=== PATIENT | female | born 1995 | race Caucasian/White ===

== ENCOUNTER 2017-11-08 04:32 | Inpatient (IN) | payer OTHER ==
[~2017-11-08] VITALS: Ht 152.4 cm; Wt 83.0 kg
[~2017-11-08 04:32] MED LIST: PREN-88 PO
[2017-11-08] MEDS ORDERED: LACTATED RINGERS 1,000 ML IV SCH (04:48)
[2017-11-08] MEDS ORDERED: DEXT 5%/LR + PITOCIN 20UNITS/L 1,000 ML IV SCH ×2 (04:48→05:17)
[2017-11-08] MEDS ORDERED: METHYLERGONOVINE MALEATE 0.2 MG/ML IM PRN ×2 (05:00→05:30)
[2017-11-08 05:22] LABS: BASOPHILS % 0.2 % (0.0-2.0); EOSINOPHILS % 0.2 % (0.0-5.0); HEMATOCRIT. 37.9 % (36.0-48.0); HEMOGLOBIN. 12.9 g/dL (12.0-16.0); MEAN CORPUSCULAR HEMOGLOBIN 30.2 pg (28.0-32.0); MEAN CORPUSCULAR VOLUME 88.8 fL (81.0-99.0); MEAN PLATELET VOLUME 10.4 fl (7.4-10.4); MONOCYTES % 5.1 % (2.0-8.0); NEUTROPHILS % 69.5 % (40.0-76.0); PLATELET 179 x1000/uL (130-400); RED BLOOD CELL COUNT 4.26 mill/uL (4.2-5.4); RED CELL DISTRIBUTION WIDTH 13.3 % (11.6-14.6)
[2017-11-08] MEDS ORDERED: BENZOCAINE/LANOLIN/ALOE VERA SPRAY TOP PRN (05:30)
[2017-11-08] MEDS ORDERED: DIPHENHYDRAMINE 25MG CAPSULE PO PRN (05:30)
[2017-11-08] MEDS ORDERED: LANOLIN OINT 0.25 GM TUBE TOP PRN (05:30)
[2017-11-08] MEDS ORDERED: BISACODYL 10MG SUPP PR PRN (05:30)
[2017-11-08] MEDS ORDERED: GLYCERIN/WITCH HAZEL LEAF MEDICATED PAD TOP PRN (05:30)
[2017-11-08] MEDS ORDERED: ACETAMINOPHEN WITH CODEINE 300/30MG TABLET PO PRN (05:30)
[2017-11-08 05:31] LABS: INR 0.9; PARTIAL THROMBOPLASTIN TIME 25.8 sec (23.4-31.0); PROTHROMBIN TIME 9.4 sec (9.4-11.6)
[2017-11-08] MEDS: IBUPROFEN 400MG TABLET PO PRN ×2 (07:14→16:04)
[2017-11-08 08:20] VITALS: BP 90/50
[2017-11-08 08:50] VITALS: BP 91/52
[2017-11-08 12:02] LABS: HEPATITIS B SURFACE ANTIGEN NEGATIVE
[2017-11-08 16:21] VITALS: BP 97/60
[2017-11-08] MEDS: MAGNESIUM/ALUMINUM HYDROXIDE/SIMETHICONE 30ML UDC PO SCH ×3 (18:03→20:58)
[2017-11-08] MEDS: SIMETHICONE 80MG TABLET CHEW PO SCH ×2 (18:04→20:41)
[2017-11-08] MEDS: PRENATAL VIT/FE FUMARATE/FA TABLET PO SCH (18:05)
[2017-11-08 20:00] VITALS: BP 101/56
[2017-11-08] MEDS: DOCUSATE SODIUM 100MG CAPSULE PO SCH (20:41)
[2017-11-09] MEDS: ACETAMINOPHEN WITH CODEINE 300/30MG TABLET PO PRN ×4 (02:05→17:36)
[2017-11-09 05:51] VITALS: BP 105/59
[2017-11-09 06:30] LABS: BASOPHILS % 0.3 % (0.0-2.0); EOSINOPHILS % 0.3 % (0.0-5.0); MEAN CORPUSCULAR HEMOGLOBIN 30.2 pg (28.0-32.0); MEAN CORPUSCULAR VOLUME 88.2 fL (81.0-99.0); MEAN PLATELET VOLUME 10.4 fl (7.4-10.4); MONOCYTES % 6.9 % (2.0-8.0); NEUTROPHILS % 63.5 % (40.0-76.0); PLATELET 165 x1000/uL (130-400); RED BLOOD CELL COUNT 3.62 mill/uL (4.2-5.4); RED CELL DISTRIBUTION WIDTH 13.6 % (11.6-14.6)
[2017-11-09 07:45] VITALS: BP 118/79
[2017-11-09] MEDS: HEMORRHOIDAL SUPP PR PRN ×2 (08:24→17:37)
[2017-11-09] MEDS: MAGNESIUM/ALUMINUM HYDROXIDE/SIMETHICONE 30ML UDC PO SCH ×2 (08:24→09:00)
[2017-11-09] MEDS: PRENATAL VIT/FE FUMARATE/FA TABLET PO SCH (08:24)
[2017-11-09] MEDS: SIMETHICONE 80MG TABLET CHEW PO SCH ×3 (08:24→20:58)
[2017-11-09 16:02] VITALS: BP 99/66
[2017-11-09 16:37] LABS: *AMPHETAMINES SCREEN URINE NEGATIVE (NEGATIVE); *BARBITURATES SCREEN URINE NEGATIVE (NEGATIVE); *BENZODIAZEPINES SCREEN URINE NEGATIVE (NEGATIVE); *COCAINE SCREEN URINE NEGATIVE (NEGATIVE); CANNABINOID URINE SCREEN NEGATIVE (NEGATIVE); METHADONE URINE SCREEN NEGATIVE (NEGATIVE); PHENCYCLIDINE URINE SCREEN NEGATIVE (NEGATIVE)
[2017-11-09 16:41] LABS: OPIATES URINE SCREEN PRESUMTIVE POSITIVE (NEGATIVE)
[2017-11-09] MEDS: FERROUS SULFATE 325MG TABLET PO SCH (17:00)
[2017-11-09 19:50] VITALS: BP 101/60
[2017-11-09] MEDS: DOCUSATE SODIUM 100MG CAPSULE PO SCH (20:59)
[2017-11-10] MEDS: IBUPROFEN 400MG TABLET PO PRN ×2 (00:14→07:56)
[2017-11-10] MEDS: PRENATAL VIT/FE FUMARATE/FA TABLET PO SCH (07:56)
[2017-11-10] MEDS: MAGNESIUM/ALUMINUM HYDROXIDE/SIMETHICONE 30ML UDC PO SCH (07:57)
[2017-11-10] MEDS: FERROUS SULFATE 325MG TABLET PO SCH (07:57)
[2017-11-10] MEDS: SIMETHICONE 80MG TABLET CHEW PO SCH (07:57)
[2017-11-10 08:13] VITALS: BP 108/66
== END 2017-11-10 11:15 | disposition home or self-care (01) | DRG 560 ==
LOC: L&D 04:32 → OBSVTOIN 04:32 → 7EST PP/OB 08:38
PROVIDERS: ADMIT Obstetrics & Gynecology; ATTEND Obstetrics & Gynecology
PROC: 10E0XZZ Delivery of Products of Conception, External Approach (ICD-10-PCS; principal; 2017-11-08)
DX: O77.0 Labor and delivery complicated by meconium in amniotic fluid (principal); Z37.0 Single live birth; Z3A.39 39 weeks gestation of pregnancy
CPT/HCPCS: 36415; 80305; 80361; 85025; 85610; 85730; 86592; 86703; 86762; 86850; 86900; 87340; C1893; J2590; J7120

== ENCOUNTER 2018-02-28 23:19 | Emergency (ER) | payer OTHER | END 2018-03-01 00:05 | disposition left against medical advice (07) | LOC: ER 23:19 | DX: Z53.21 Procedure and treatment not carried out due to patient leaving prior to being seen by health care provider (principal) ==

== ENCOUNTER 2021-04-08 22:27 | Emergency (ER) | payer OTHER ==
[~2021-04-08] VITALS: Ht 157.5 cm; Wt 82.0 kg
[2021-04-09 00:18] VITALS: BP 115/69
[2021-04-09] MEDS ORDERED: ACETAMINOPHEN 325MG TABLET PO ONE (00:30)
[2021-04-09] MEDS ORDERED: ACET650T37 MT ×3 (01:32→01:34)
[2021-04-09] MEDS ORDERED: AMOX-494 MT ×3 (01:32→01:34)
== END 2021-04-09 02:04 | disposition home or self-care (01) ==
LOC: ER 22:27
DX: J02.9 Acute pharyngitis, unspecified (principal); H92.03 Otalgia, bilateral
CPT/HCPCS: 81025; 87070; 87430; 99283